=== PATIENT | female | born 1990 | race African-American/Black ===

== ENCOUNTER 2024-05-06 10:30 | Inpatient (IN) | payer SELFPAY ==
[~2024-05-06] VITALS: Ht 157.5 cm; Wt 49.9 kg
[2024-05-06 12:18] LABS: CARBON DIOXIDE 21 mEq/L (21-32); CHLORIDE 105 mEq/L (98-107); POTASSIUM 3.5 mEq/L (3.5-5.1); SODIUM 136 mEq/L (136-145)
[2024-05-06 12:19] LABS: CALCIUM 9.7 mg/dL (8.7-10.4)
[2024-05-06 12:20] LABS: HEMATOCRIT. 39.1 % (36.0-48.0); HEMOGLOBIN. 12.3 g/dL (12.0-16.0); MEAN CORPUSCULAR HEMOGLOBIN 24.5 pg (28.0-32.0); MEAN CORPUSCULAR HGB CONC 31.4 g/dL (31.0-37.0); MEAN CORPUSCULAR VOLUME 77.9 fL (81.0-99.0); MEAN PLATELET VOLUME 8.5 fl (7.4-10.4); PLATELET 200 x1000/uL (130-400); RED BLOOD CELL COUNT 5.02 mill/uL (4.2-5.4); RED CELL DISTRIBUTION WIDTH 13.5 % (11.6-14.6)
[2024-05-06 12:24] LABS: CREATININE 0.8 mg/dL (0.6-1.0); GLUCOSE 146 mg/dL (70-105); UREA NITROGEN BLOOD 6 mg/dL (9-23)
[2024-05-06 12:25] LABS: DIFFERENTIAL COMMENT 1
[2024-05-06 12:26] LABS: ALANINE AMINOTRANSFERASE 28 IU/L (10-49); ALBUMIN 4.7 g/dL (3.2-4.8); ASPARTATE AMINOTRANSFERASE 24 IU/L (<34); BILIRUBIN DIRECT 0.2 mg/dL (<=3.0); BILIRUBIN TOTAL 0.6 mg/dL (0.1-1.0); PROTEIN TOTAL 7.1 g/dL (6.0-8.3)
[2024-05-06] MEDS ORDERED: MORPHINE SULFATE 4 MG/ML INJ (FOR IV/IM USE) IV ONE (12:30)
[2024-05-06] MEDS ORDERED: ONDANSETRON HCL 4MG/2ML INJ IV ONE (12:30)
[2024-05-06] MEDS: OXYCODONE HCL/ACETAMINOPHEN 5/325MG TABLET PO ONE (12:33)
[2024-05-06] MEDS: ONDANSETRON 4MG ODT PO ONE (12:34)
[2024-05-06 12:40] LABS: HCG SCREEN NEGATIVE
[2024-05-06 13:16] LABS: PLATELET ESTIMATE NORMAL
[2024-05-06 13:17] LABS: MICROCYTOSIS 1+
[2024-05-06] MEDS: LACTATED RINGERS 1,000 ML IV SCH (14:17)
[2024-05-06] MEDS: MORPHINE SULFATE 4 MG/ML INJ (FOR IV/IM USE) IV NR (14:17)
[2024-05-06] MEDS: ONDANSETRON HCL 4MG/2ML INJ IV NR (14:17)
[2024-05-06 18:00] VITALS: BP 107/56; PULSE 64; RESP 20; TEMP 36.78072; O2SAT 100
[2024-05-06] MEDS ORDERED: LORAZEPAM 0.5MG TABLET PO PRN (19:45)
[2024-05-06] MEDS ORDERED: CLONIDINE 0.1MG TABLET PO PRN (19:45)
[2024-05-06] MEDS ORDERED: IPRATROPIUM/ALBUTEROL 0.5-3(2.5)MG/3ML NEB HHN PRN (19:45)
[2024-05-06] MEDS ORDERED: DOCUSATE SODIUM 100MG CAPSULE PO PRN (19:45)
[2024-05-06] MEDS ORDERED: GUAIFENESIN 200MG/10ML SUGAR FREE UDC PO PRN (19:45)
[2024-05-06] MEDS ORDERED: ACETAMINOPHEN 325MG TABLET PO PRN (19:45)
[2024-05-06] MEDS ORDERED: ONDANSETRON HCL 4MG/2ML INJ IV PRN (19:45)
[2024-05-06 20:00] VITALS: BP 127/91; PULSE 113; RESP 15; TEMP 36.6696; O2SAT 100
[2024-05-06] MEDS: DEXT 5%/0.45% NACL 1000ML 1,000 ML IV SCH (20:00)
[2024-05-06] MEDS: HALOPERIDOL LACTATE 5MG/ML VIAL IM NR (21:51)
[2024-05-07] VITALS: BP 111/86; PULSE 98; RESP 15; TEMP 36.6696; O2SAT 100
[2024-05-07 04:00] VITALS: BP 105/66; PULSE 87; RESP 15; TEMP 38.22528; O2SAT 100
[2024-05-07] MEDS: ACETAMINOPHEN 325MG TABLET PO PRN (05:00)
[2024-05-07 05:59] VITALS: BP 123/81; PULSE 112; RESP 15; TEMP 36.696; TEMP 36.6960
[2024-05-07 08:40] LABS: HEMATOCRIT 37.2 % (36.0-48.0); HEMOGLOBIN 11.8 g/dL (12.0-16.0); MEAN CORPUSCULAR HEMOGLOBIN 24.5 pg (28.0-32.0); MEAN CORPUSCULAR HGB CONC 31.7 g/dL (31.0-37.0); MEAN CORPUSCULAR VOLUME 77.4 fL (81.0-99.0); PLATELET 178 x1000/uL (130-400); RED BLOOD CELL COUNT 4.81 mill/uL (4.2-5.4); WHITE BLOOD COUNT 7.1 x1000/uL (4.5-11.0)
[2024-05-07 08:49] LABS: CHLORIDE 105 mEq/L (98-107); POTASSIUM 3.7 mEq/L (3.5-5.1); SODIUM 139 mEq/L (136-145)
[2024-05-07 08:50] LABS: CALCIUM 9.5 mg/dL (8.7-10.4); CARBON DIOXIDE 24 mEq/L (21-32)
[2024-05-07 08:55] LABS: CREATININE 0.9 mg/dL (0.6-1.0); GLUCOSE 82 mg/dL (70-105); UREA NITROGEN BLOOD 6 mg/dL (9-23)
[2024-05-07] MEDS: PANTOPRAZOLE SODIUM 40 MG/VIAL IV SCH (09:00)
[2024-05-07] MEDS: POLYETHYLENE GLYCOL 3350 (17GM) 1 DOSE PACK PO NR (09:23)
[2024-05-07 10:34] VITALS: BP 140/62; PULSE 72; TEMP 97.8; O2SAT 98
== END 2024-05-07 10:25 | disposition home or self-care (01) | DRG 251 ==
LOC: ER 10:30 → 8EST 14:56 → EDBEDREQ 15:11 → EDBEDREQTM 15:11
PROVIDERS: ADMIT Internal Medicine; ATTEND Internal Medicine
DX: R10.84 Generalized abdominal pain (principal); F12.90 Cannabis use, unspecified, uncomplicated; F41.9 Anxiety disorder, unspecified
CPT/HCPCS: 36415; 74176; 80048; 80076; 83735; 84100; 84703; 85025; 85027; 99285; J1630; J2270; J2405; Q0162